=== PATIENT | male | born 1965 | race Caucasian/White ===

== ENCOUNTER → 2021-05-21 | Outpatient (CLI) | payer BC ==
--- NOTE | 2021-05-21 14:11 | MR ---
MRI CERVICAL SPINE: CLINICAL HISTORY: Neck pain for 5 years. TECHNIQUE: Multiplanar, multisequence imaging of the cervical spine is performed without IV contrast. COMPARISON: Outside cervical spine x-ray May 05, 2021. FINDINGS: Sagittal images of the cervical spine show the craniocervical junction to appear within nor mal limits. The cervical and upper thoracic spinal cord is normal in course, caliber, and signal. V ertebral alignment is stable and satisfactory. The vertebral body and intravertebral disk heights ar e normal. The bone marrow signal intensity is within normal limits. Mild to moderate multilevel ante rior spurring of C5 and C6 levels. Axial images show C2-C3 level to appear within normal limits. Axial images at C3-C4 level showing focal central disc protrusion mildly effacing the anterior thecal sac with uncovertebral facet degenerative changes causing mild bilateral neural foraminal narrowing. Axial images at C4-C5 level shows some uncovertebral facet degenerative changes causing mild bilatera l neural foraminal narrowing. Axial images at C5-C6 level appear within normal limits. Axial images at C6-C7 level showed broad foraminal disc protrusions causing mild/moderate left greate r than right bilateral neural foraminal narrowing. Spinal canal is preserved. Axial images at C7-T1 level appear within normal limits. IMPRESSION: Satisfactory alignment. Mild to borderline moderate multilevel degenerative changes as de tailed above.
== END | disposition home or self-care (01) ==
LOC: RADMRIMAIN 13:09
PROVIDERS: ATTEND Orthopaedic Surgery
DX: M47.812 Spondylosis without myelopathy or radiculopathy, cervical region (principal); M50.21 Other cervical disc displacement, high cervical region; M25.78 Osteophyte, vertebrae
CPT/HCPCS: 72141